=== PATIENT | male | born 1970 ===

== ENCOUNTER 2017-04-24 23:21 | Emergency (ER) | payer MEDICAID, OTHER ==
[~2017-04-24] VITALS: Ht 172.7 cm; Wt 109.1 kg
[2017-04-24 23:30] VITALS: Ht 172.7 cm; Wt 109.1 kg
[2017-04-25] MEDS ORDERED: morphine 4 MG/ML VIAL IV STA (00:44)
[2017-04-25] MEDS ORDERED: SOD CHLORIDE 0.9% 1,000 ML IV STA (00:44)
[2017-04-25] MEDS ORDERED: ONDANSETRON 4 MG INJ IV STA (00:44)
[2017-04-25] MEDS ORDERED: [UNRECOGNIZED DRUG - REMARK] (01:08)
--- NOTE | 2017-04-25 01:09 | ERD ---
ER Documentation Chief Complaint Date/Time DATE: 04/25/17 TIME: 01:07 Chief Complaint WHALEN,VOMITING, ABDOMINAL PAIN TODAY. HPI 46-year-old male presents to emergency department for generalized body aches, generalized abdominal pain vomiting headache that started today. Patient had vomiting episodes, does not have any blood in her vomit. Patient denies any diarrhea or constipation. Patient's complaint of body aches and generalized abdominal pain throbbing pain succession scale, accompanying the other symptoms. Patient denies any sick contacts. Patient denies any hematuria or dysuria. Patient denies any fever or chills. ROS All systems reviewed and are negative except as per history of present illness. Medications Home Meds Reported Medications [dm and htn meds unk] Unknown Strength No Conflict Check 04/25/17 Allergies Allergies: Coded Allergies: No Known Drug Allergy (Verified Allergy, Unknown, 04/24/17) PMhx/Soc Medical and Surgical Hx: pt denies Surgical Hx Hx Miscellaneous Medical Probl: Yes (dm, htn) Hx Alcohol Use: No Hx Substance Use: No Hx Tobacco Use: No Smoking Status: Never smoker FmHx Family History: No coronary disease, No diabetes, No other Physical Exam Vitals Vital Signs Date Time Temp Pulse Resp B/P Pulse Ox O2 Delivery O2 Flow Rate FiO2 04/24/17 23:30 97.4 89 20 168/92 99 Physical Exam GENERAL: The patient is well developed and appropriate for usual state of health, in no apparent distress. CHEST: Clear to auscultation bilaterally. There are no rales, wheezes or rhonchi. HEART: Regular rate and rhythm. No murmurs, clicks, rubs or gallops. No S3 or S4. ABDOMEN: Soft, nontender and nondistended. Good bowel sounds. No rebound or guarding. No gross peritonitis. No gross organomegaly or masses. No Hawkins sign or McBurney point tenderness. BACK: No midline or flank tenderness. EXTREMITIES: Equal pulses bilaterally. There is no peripheral clubbing, cyanosis or edema. No focal swelling or erythema. Full range of motion. Grossly neurovascularly intact. NEURO: Alert and oriented. Cranial nerves 2-12 intact. Motor strength in all 4 extremities with 5/5 strength. Sensation grossly intact. Normal speech and gait. SKIN: There is no apparent rash or petechia. The skin is warm and dry. HEMATOLOGIC AND LYMPHATIC: There is no evidence of excessive bruising or lymphedema. No gross cervical, axillary, or inguinal lymphadenopathy. Result Diagram: 04/25/179904/25/1799 Results 24 hrs Laboratory Tests Test 04/25/17 00:57 04/25/17 01:00 Urine Color YELLOW Urine Clarity CLEAR Urine pH 5.0 Urine Specific Tamms 1.029 Urine Ketones NEGATIVEmg/dL Urine Nitrite NEGATIVEmg/dL Urine Bilirubin NEGATIVEmg/dL Urine Urobilinogen NEGATIVEmg/dL Urine Leukocyte Esterase NEGATIVELeu/ul Urine Hemoglobin NEGATIVEmg/dL Urine Glucose NEGATIVEmg/dL Urine Total Protein NEGATIVEmg/dl White Blood Count 8.910^3/ul Red Blood Count 4.5410^6/ul Hemoglobin 13.6g/dl Hematocrit 40.8% Mean Corpuscular Volume 89.9fl Mean Corpuscular Hemoglobin 30.0pg Mean Corpuscular Hemoglobin Concent 33.3g/dl Red Cell Distribution Width 12.6% Platelet Count 67140^3/UL Mean Platelet Volume 11.9fl Neutrophils % 49.2% Lymphocytes % 36.2% Monocytes % 10.8% Eosinophils % 2.4% Basophils % 0.8% Nucleated Red Blood Cells % 0.0/100WBC Neutrophils # 4.410^3/ul Lymphocytes # 3.210^3/ul Monocytes # 1.010^3/ul Eosinophils # 0.210^3/ul Basophils # 0.110^3/ul Nucleated Red Blood Cells # 0.010^3/ul Sodium Level 140mmol/L Potassium Level 4.2mmol/L Chloride Level 106mmol/L Carbon Dioxide Level 25mmol/L Anion Gap 13 Blood Urea Nitrogen 18mg/dl Creatinine 0.67mg/dl Glucose Level 121mg/dl Calcium Level 9.4mg/dl Total Bilirubin 0.7mg/dl Direct Bilirubin 0.00mg/dl Indirect Bilirubin 0.7mg/dl Aspartate Amino Transf (AST/SGOT) 37IU/L Alanine Aminotransferase (ALT/SGPT) 58IU/L Alkaline Phosphatase 135IU/L Total Protein 7.9g/dl Albumin 4.4g/dl Globulin 3.50g/dl Albumin/Globulin Ratio 1.25 Lipase 95U/L Current Medications Medications (Trade) Dose Ordered Sig/Donna Route PRN Reason Start Time Stop Time Status Last Admin Dose Admin Sodium Chloride (NS) 1,000 ml @ 1,000 mls/hr Q1H STAT IV 04/25/17 00:44 04/25/17 01:43 DC 04/25/17 01:07 Morphine Sulfate (morphine) 4 mg ONCE STAT IV 04/25/17 00:44 04/25/17 00:46 DC 04/25/17 01:06 Ondansetron HCl (Zofran Inj) 4 mg ONCE STAT IV 04/25/17 00:44 04/25/17 00:46 DC 04/25/17 01:06 Patient was given medication for pain here in emergency department, after treatment, patient verbalized feeling much better. Patient's pain is improved. Patient was given Zofran here in the emergency department. After treatment, patient was able to tolerate po fluids here in the emergency department without any vomiting. There is no signs and symptoms of dehydration. Normal saline IV bolus was given here in emergency department for rehydration, patient tolerated IV fluids. PROCEDURE: CT ABDOMEN/PELVIS WITHOUT CONTRAST CLINICAL INDICATION: 46-year-old male with abdominal/pelvic pain. TECHNIQUE: The study was performed utilizing a [employer] VCT 64-slice CT scanner. Direct axial sections were obtained through the abdomen and pelvis without the use of intravenous contrast material. Sagittal and coronal reformations were obtained. One or more of the following dose reduction techniques were utilized: automated exposure control, adjustment of the mA and/ or kV according to patient's size and/or the use of iterative reconstruction technique. The images were reviewed on a PACS workstation. CTD/vol = 23.3 mGy ; Total Exam DLP = 1580.6 mGy-cm. COMPARISON: None. FINDINGS: The lung bases are unremarkable. There is no evidence for significant pleural effusion. The liver has a normal size and contour. There is mild diffuse decreased density throughout the liver consistent with fatty infiltration but without focal areas of abnormal density. No intrahepatic nor extrahepatic biliary ductal dilatation is seen. The gallbladder demonstrates no wall thickening nor pericholecystic fluid. No biliary stones are evident. The pancreas is without areas of abnormal attenuation. The spleen is identified and has a normal size with a small mid splenic 5 x 5 mm ovoid calcific density on axial image 3-48. The adrenal glands are unremarkable. The kidneys are without abnormal density. No hydroureteronephrosis nor nephroureterolithiasis is evident. The urinary bladder contains urine. There is mild retained stool within the ascending and transverse colon without obstruction. The appendix is visualized and is without abnormal thickening or surrounding inflammatory reaction. The prostate is not enlarged. There is no significant free fluid. There is dense calcification of the vas deferens bilaterally. The aortoiliac vessels are without aneurysmal dilatation. The osseous structures are intact. IMPRESSION: 1. Mild hepatic steatosis. 2. No CT evidence for obstructive uropathy or renal calculi. 3. Mild retained stool within the proximal colon. 4. No CT evidence for appendicitis. 5. Dense bilateral vas deferens calcifications commonly seen in diabetic patients. Clinical correlation is necessary. .Asher Sunshine MD, MD Date Time Electronically viewed and signed by .Asher Sunshine MD, MD on 04/25/2017 02:31 .M/ CC: GUSTAVO BOSS V[employer]ING INTERN Procedures/MDM Medical Decision Making: Symptoms of headache vomiting body aches abdominal pain nonspecific at this time, possible from viral syndrome. There is low suspicion for abdominal emergencies at this time. Patients abdominal exam is normal at this time. Patients radiology exam does not show any abdominal emergencies at this time. There is low suspicion for appendicitis, cholecystitis , abdominal aortic aneurysms or peritonitis at this time. There is low suspicion for sepsis. Patient appears well and is hemodynamically stable. Disposition: Home. Condition: Stable Prescription Zofran, tramadol Instructions: Patient is advised to take medications as prescribed. Patient is advised to rest, increase fluid intake and do brat diet for next 1-2 days and progress as tolerated. Patient is advised that if symptoms are worse, severe abdominal pain, uncontrolled vomiting, high fever, severe flank pain, worst signs and symptoms, to return to the emergency department immediately. Otherwise, patient can follow up with primary care doctor in 5-7 days. Disclaimer: Inadvertent spelling and grammatical errors are likely due to EHR/ dictation software use and do not reflect on the overall quality of patient care. Also, please note that the electronic time recorded on this note does not necessarily reflect the actual time of the patient encounter. Departure Diagnosis: Primary Impression: Viral syndrome Condition: Stable Patient Instructions: Viral Syndrome (Adult) Additional Instructions: Patient is advised to take medications as prescribed. Patient is advised to rest, increase fluid intake and do brat diet for next 1-2 days and progress as tolerated. Patient is advised that if symptoms are worse, severe abdominal pain , uncontrolled vomiting, high fever, severe flank pain, worst signs and symptoms , to return to the emergency department immediately. Otherwise, patient can follow up with primary care doctor in 5-7 days. GUSTAVO BOSS NP Apr 25, 2017 01:09
[2017-04-25 01:15] LABS: BASOPHIL # 0.1 10^3/ul (0.0-0.1); BASOPHILS % 0.8 % (0.0-2.0); EOSINOPHILS # 0.2 10^3/ul (0.0-0.5); EOSINOPHILS % 2.4 % (0.0-7.0); HEMATOCRIT 40.8 % (42.0-52.0); HEMOGLOBIN 13.6 g/dl (14.0-18.0); LYMPHOCYTES # 3.2 10^3/ul (0.8-2.9); LYMPHOCYTES % 36.2 % (15.0-51.0); MEAN CORPUSCULAR HGB CONC 33.3 g/dl (32.0-37.0); MEAN CORPUSCULAR VOLUME 89.9 fl (82.0-101.0); MEAN PLATELET VOLUME 11.9 fl (7.4-10.4); MONOCYTES % 10.8 % (0.0-11.0); NEUTROPHIL # 4.4 10^3/ul (1.6-7.5); NEUTROPHILS % 49.2 % (39.0-77.0); PLATELET COUNT 199 10^3/UL (140-415); RED BLOOD COUNT 4.54 10^6/ul (4.70-6.10); RED CELL DISTRIBUTION WIDTH 12.6 % (11.5-14.5); WHITE BLOOD COUNT 8.9 10^3/ul (4.8-10.8)
[2017-04-25 01:29] LABS: ADD UMIC NO; UR ASCORBIC ACID NEGATIVE (NEGATIVE); UR BILIRUBIN (Dip) NEGATIVE (NEGATIVE); UR BLOOD (Dip) NEGATIVE (NEGATIVE); UR CLARITY CLEAR (CLEAR); UR COLOR YELLOW (YELLOW); UR GLUCOSE (Dip) NEGATIVE (NEGATIVE); UR KETONES (Dip) NEGATIVE (NEGATIVE); UR LEUKOCYTE ESTERASE (Dip) NEGATIVE Leu/ul (NEGATIVE); UR NITRITE (Dip) NEGATIVE (NEGATIVE); UR SPECIFIC GRAVITY (Dip) 1.029 (1.003-1.030); UR TOTAL PROTEIN (Dip) NEGATIVE (NEGATIVE); UR UROBILINOGEN (Dip) NEGATIVE (NEGATIVE)
[2017-04-25 01:46] LABS: ALBUMIN 4.4 g/dl (3.3-4.9); ALBUMIN/GLOBULIN RATIO 1.25; BILIRUBIN,INDIRECT 0.7 mg/dl (0-1.1); BILIRUBIN,TOTAL 0.7 mg/dl (0.2-1.3); CALCIUM 9.4 mg/dl (8.4-10.2); CREATININE 0.67 mg/dl (0.61-1.24); POTASSIUM 4.2 mmol/L (3.5-5.1); TOTAL PROTEIN 7.9 g/dl (6.1-8.1)
--- NOTE | 2017-04-25 02:32 | RADRPT ---
PROCEDURE: CT ABDOMEN/PELVIS WITHOUT CONTRAST CLINICAL INDICATION: 46-year-old male with abdominal/pelvic pain. TECHNIQUE: The study was performed utilizing a [employer] VCT 64-slice CT scanner. Direct axia l sections were obtained through the abdomen and pelvis without the use of intravenous contrast mate rial. Sagittal and coronal reformations were obtained. One or more of the following dose reduction t echniques were utilized: automated exposure control, adjustment of the mA and/or kV according to pat ient's size and/or the use of iterative reconstruction technique. The images were reviewed on a PAC S workstation. CTD/vol = 23.3 mGy; Total Exam DLP = 1580.6 mGy-cm. COMPARISON: None. FINDINGS: The lung bases are unremarkable. There is no evidence for significant pleural effusion. The liver has a normal size and contour. There is mild diffuse decreased density throughout the liver consiste nt with fatty infiltration but without focal areas of abnormal density. No intrahepatic nor extrahep atic biliary ductal dilatation is seen. The gallbladder demonstrates no wall thickening nor perichol ecystic fluid. No biliary stones are evident. The pancreas is without areas of abnormal attenuation. The spleen is identified and has a normal size with a small mid splenic 5 x 5 mm ovoid calcific de nsity on axial image 3-48. The adrenal glands are unremarkable. The kidneys are without abnormal den sity. No hydroureteronephrosis nor nephroureterolithiasis is evident. The urinary bladder contains u rine. There is mild retained stool within the ascending and transverse colon without obstruction. Th e appendix is visualized and is without abnormal thickening or surrounding inflammatory reaction. The prostate is not enlarged. There is no significant free fluid. There is dense calcification of th e vas deferens bilaterally. The aortoiliac vessels are without aneurysmal dilatation. The osseous st ructures are intact. IMPRESSION: 1. Mild hepatic steatosis. 2. No CT evidence for obstructive uropathy or renal calculi. 3. Mild retained stool within the proximal colon. 4. No CT evidence for appendicitis. 5. Dense bilateral vas deferens calcifications commonly seen in diabetic patients. Clinical correla tion is necessary. .Asher Sunshine MD, Date Time Electronically viewed and signed by .Asher Sunshine MD, MD on 04/25/2017 02:31 .M/
[2017-04-25] MEDS ORDERED: IBUP-1542 PO (02:53)
[2017-04-25] MEDS ORDERED: TRAM50TA2 PO (02:53)
[2017-04-25] MEDS ORDERED: ONDA4TAB14 PO (02:53)
== END 2017-04-25 03:17 | disposition home or self-care (01) ==
LOC: FTE 23:21
DX: B34.9 Viral infection, unspecified (principal); I10 Essential (primary) hypertension; E11.9 Type 2 diabetes mellitus without complications
CPT/HCPCS: 36415; 74176; 80053; 81003; 83690; 85025; 96374; 96375; J2270; J2405; J7030; Z7502